=== PATIENT | male | born 1935 | race Caucasian/White ===

== ENCOUNTER → 2019-04-21 | Outpatient (CLI) | payer MEDICARE ==
--- NOTE | 2019-04-21 09:08 | US ---
EXAMINATION TYPE: US abdomen complete DATE OF EXAM: 04/21/2019 COMPARISON: NONE CLINICAL HISTORY: R10.84 Generalized abdominal pain. EXAM MEASUREMENTS: Liver Length: 13.8 cm Gallbladder Wall: 0.2 cm CBD: 0.5 cm Spleen: 10.5 cm Right Kidney: 9.3 x 4.9 x 4.6 cm Left Kidney: 12.1 x 5.1 x 4.6 cm Pancreas: Tail partially obscured by overlying bowel gas, otherwise wnl Liver: well circumscribed echogenic focus anterior to bile duct measuring 1.2 x 0.9 x 1.2cm Gallbladder: echogenic foci with comet tail artifact in anterior gallbladder wall, also some seen po sterior wall Evidence for sonographic Ferrari's sign: no CBD: wnl Spleen: wnl Right Kidney: cyst seen inferior measuring 3.1 x 2.5 x 2.9cm Left Kidney: posterior cyst seen measuring 1.7 x 2.0 x 1.8cm, hyperechoic foci seen Upper IVC: wnl Abd Aorta: wnl The intrahepatic portion of the IVC and proximal abdominal aorta are within normal limits. Common lidya e duct is unremarkable. The visualized portions of the pancreas are homogenous. The spleen is unrem arkable. Kidneys are free of hydronephrosis. IMPRESSION: 1. There is a solitary 1.2 cm hyperechoic lesion within the right hepatic lobe. This most commonly re presents a benign hemangioma in the absence of underlying hepatocellular disease. However three-phase enhanced CT or MRI could be performed for further characterization. 2. Diffuse adenomyomatosis of the gallbladder. No current evidence of acute cholelithiasis. 3. Bilateral renal cysts. 4. Solitary nonobstructing left renal calculus. 5. Slight asymmetry in size of the kidneys.
== END | disposition home or self-care (01) ==
LOC: RADUSWWP 07:18
PROVIDERS: ATTEND Internal Medicine Geriatric Medicine
DX: K76.9 Liver disease, unspecified (principal); K82.8 Other specified diseases of gallbladder; N28.1 Cyst of kidney, acquired; N20.0 Calculus of kidney
CPT/HCPCS: 76700